=== PATIENT | female | born 1970 | race Caucasian/White ===

== ENCOUNTER → 2017-09-02 | Outpatient (CLI) | payer BC ==
[~2017-09-02] MED LIST: GABA300C10 PO; MELO7.5T5 PO; TRAM-47 PO
== END | disposition home or self-care (01) ==
LOC: CFH 13:27
PROVIDERS: ATTEND Family Medicine
DX: Z12.31 Encounter for screening mammogram for malignant neoplasm of breast (principal)
CPT/HCPCS: 77063; G0202

== ENCOUNTER → 2018-11-24 | Outpatient (CLI) | payer BC | END | disposition home or self-care (01) | LOC: CFH 12:16 | PROVIDERS: ATTEND Family Medicine | DX: Z12.31 Encounter for screening mammogram for malignant neoplasm of breast (principal) | CPT/HCPCS: 77063; 77067 ==

== ENCOUNTER → 2019-12-10 | Outpatient (CLI) | payer BC ==
[2019-12-10 15:44] LABS: BASOPHILS # (AUTO) 0.02 x10^3/uL (0-0.1); BASOPHILS % (AUTO) 1 % (0-1); EOSINOPHILS % (AUTO) 0 % (1-7); LYMPHOCYTES # (AUTO) 1.61 x10^3/uL (1-3.4); LYMPHOCYTES % (AUTO) 34 % (22-44); MD NO; MEAN CORPUSCULAR HEMOGLOBIN 30.8 pg (27.0-34.8); MEAN CORPUSCULAR HGB CONC 33.7 g/dL (32.4-35.8); MEAN CORPUSCULAR VOLUME 91.3 fL (80-100); MEAN PLATELET VOLUME 8.5 fL (7.4-10.4); MONOCYTES # (AUTO) 0.59 x10^3/uL (0.2-0.8); MONOCYTES % (AUTO) 12 % (2-9); NEUTROPHILS # (AUTO) 2.51 x10^3/uL (1.8-6.8); NEUTROPHILS % (AUTO) 53 % (42-75); PLATELET COUNT 247 x10^3/uL (130-400); RED BLOOD COUNT 4.95 x10^6/uL (3.82-5.3); RED CELL DISTRIBUTION WIDTH 13.5 % (9.6-15.2)
[2019-12-10 16:09] LABS: ALANINE AMINOTRANSFERASE 41 U/L (12-78); ALBUMIN 4.4 g/dL (3.4-5.0); ANION GAP 8 mmol/L (5-15); CHLORIDE 102 mmol/L (98-107)
[2019-12-10 16:11] LABS: ALKALINE PHOSPHATASE 59 U/L (45-117); BILIRUBIN,TOTAL 0.4 mg/dL (0.2-1.0); TOTAL PROTEIN 8.1 g/dL (6.4-8.2)
== END | disposition home or self-care (01) ==
LOC: CFH 12:33
PROVIDERS: ATTEND Internal Medicine
DX: J20.9 Acute bronchitis, unspecified (principal); J01.90 Acute sinusitis, unspecified; E11.69 Type 2 diabetes mellitus with other specified complication
CPT/HCPCS: 36415; 71046; 80053; 85025

== ENCOUNTER → 2020-05-06 | Outpatient (CLI) | payer BC | END | disposition home or self-care (01) | LOC: CFH 09:12 | PROVIDERS: ATTEND Family Medicine | DX: R92.1 Mammographic calcification found on diagnostic imaging of breast (principal) | CPT/HCPCS: 77065 ==

== ENCOUNTER → 2020-06-08 | Outpatient (CLI) | payer BC ==
[~2020-06-08] MED LIST changes: +LIDOCAINE 1%, 20ML ONE; +LIDOCAINE 1%-EPI 1:100K, 20ML ONE; +SODIUM BICARBONATE 4.0%, 5ML ONE
== END | disposition home or self-care (01) ==
LOC: CFH 07:36
PROVIDERS: ATTEND Family Medicine
DX: R92.0 Mammographic microcalcification found on diagnostic imaging of breast (principal); N60.42 Mammary duct ectasia of left breast
CPT/HCPCS: 19081; 77065; 88305; J3490

== ENCOUNTER 2021-03-19 06:58 | Emergency (ER) | payer BC ==
[~2021-03-19] VITALS: Ht 162.6 cm; Wt 75.6 kg
[~2021-03-19 06:58] MED LIST changes: -LIDOCAINE 1%, 20ML ONE; -LIDOCAINE 1%-EPI 1:100K, 20ML ONE; -SODIUM BICARBONATE 4.0%, 5ML ONE
[2021-03-19] MEDS ORDERED: METHOCARBAMOL 750 MG TABLET PO ONE (07:30)
[2021-03-19] MEDS ORDERED: KETOROLAC 30 MG/1 ML IM ONE (07:30)
[2021-03-19] MEDS ORDERED: DIAZEPAM 5 MG/ML, 2ML IVPush ONE (07:30)
[2021-03-19] MEDS ORDERED: OXYcodone/APAP 5/325MG TABLET PO ONE (07:30)
[2021-03-19] MEDS ORDERED: METHOCARBAMOL 750 MG TABLET ONE (07:44)
[2021-03-19] MEDS ORDERED: KETOROLAC 30 MG/1 ML ONE (07:44)
[2021-03-19] MEDS ORDERED: OXYcodone/APAP 5/325MG TABLET ONE (07:45)
[2021-03-19] MEDS ORDERED: SODIUM CHLORIDE 0.9% 1,000ML IVBOLUS ONE (08:30)
--- NOTE | 2021-03-19 08:30 | NUR ---
PT ABLE TO AMBULATE STEADILY WITH DAUGHTER STAND BY ASSIST TO BATHROOM TO PROVIDE URINE SAMPLE. URINE WALKED TO LAB. WILL CONTINUE TO MONITOR.
[2021-03-19 08:47] LABS: MICROSCOPIC NOT IND
[2021-03-19 09:22] VITALS: BP 101/77
== END 2021-03-19 09:24 | disposition home or self-care (01) ==
LOC: ED 08:40
DX: S39.012A Strain of muscle, fascia and tendon of lower back, initial encounter (principal); M48.061 Spinal stenosis, lumbar region without neurogenic claudication; M54.16 Radiculopathy, lumbar region; I10 Essential (primary) hypertension; E11.9 Type 2 diabetes mellitus without complications; X58.XXXA Exposure to other specified factors, initial encounter; Y93.89 Activity, other specified; Y92.89 Other specified places as the place of occurrence of the external cause; Y99.8 Other external cause status
CPT/HCPCS: 72110; 81003; 82962; 96372; 99285; J1885; J7030